=== PATIENT | female | born 1945 | race Caucasian/White ===

== ENCOUNTER → 2018-03-29 | Outpatient (CLI) | payer MEDICARE, BC ==
--- NOTE | 2018-03-29 13:25 | RADIOLOGY REPORT (SQ) ---
EXAM DESCRIPTION: MRI RT LOWER JOINT WITHOUT COMPLETED DATE/TIME: 03/29/2018 12:56 pm REASON FOR STUDY: M17.11 UNILATERAL PRIMARY OSTEOARTHRITIS, RIGHT KNEE M17.11 UNILATERAL PRIMARY OS TEOARTHRITIS, RIGHT KNEE COMPARISON: None. TECHNIQUE: Rightknee images acquired and stored on PACS. Multiplanar images include fat sensitive s equences as T1, water sensitive sequences as FST2 or STIR, cartilage sensitive sequences as FSPD, and gradient echo sequences. LIMITATIONS: None. FINDINGS: JOINT AND BURSAE: Moderate suprapatellar knee joint effusion. 5 x 2 cm Suarez's cyst in th e medial popliteal fossa BONE CORTEX AND MARROW: No marrow signal abnormalities worrisome for aggressive marrow replacement pr ocess/metastatic disease. A 3 x 2 cm area of edema and articular surface collapse is present along t he weight-bearing surface lateral femoral condyle coronal osteochondral defect. This is best shown o n sagittal image 7 and coronal image 15. ACL: Intact. No degeneration or ganglion cyst. PCL: Intact. MCL: Intact. No periligamentous edema or fluid. LCL: Intact. No periligamentous edema or fluid. MEDIAL MENISCUS: No tears. No abnormal signal. LATERAL MENISCUS: No tears. No abnormal signal. MEDIAL COMPARTMENT: Mild chondromalacia. No bone bruises or reactive marrow edema. No osteophytes. LATERAL COMPARTMENT: 3 x 2 cm area of edema and articular surface collapse is present along the weigh t-bearing surface lateral femoral condyle coronal osteochondral defect. This is best shown on sagitt al image 7 and coronal image 15 PATELLA: Mild diffuse patellar chondromalacia. No subchondral cysts. Medial and lateral retinacula in tact. EXTENSOR MECHANISM: Intact. Quadriceps and patella tendons normal. SOFT TISSUES: Adjacent muscles and subcutaneous tissues normal. Normal flow void in popliteal artery and vein. OTHER: No other significant finding. IMPRESSION: Large osteochondral defect weight-bearing surface lateral femoral condyle with 3 x 2 cm area of subcortical edema and articular surface collapse TECHNICAL DOCUMENTATION: JOB ID: [id number] [employer]- All Rights Reserved Reading location - IP/workstation name: [email or web address]
== END ==
LOC: RAD 11:47
PROVIDERS: ATTEND Orthopaedic Surgery
DX: M17.11 Unilateral primary osteoarthritis, right knee (principal)

== ENCOUNTER → 2018-04-20 | Outpatient (CLI) | payer MEDICARE, BC ==
--- NOTE | 2018-04-20 12:57 | RADIOLOGY REPORT (SQ) ---
EXAM DESCRIPTION: CHEST PA/LATERAL COMPLETED DATE/TIME: 04/20/2018 12:19 pm REASON FOR STUDY: PRE-OP COMPARISON: 10/29/2015. EXAM PARAMETERS: NUMBER OF VIEWS: two views TECHNIQUE: Digital Frontal and Lateral radiographic views of the chest acquired. RADIATION DOSE: NA LIMITATIONS: none FINDINGS: LUNGS AND PLEURA: No opacities, masses or pneumothorax. No pleural effusion. MEDIASTINUM AND HILAR STRUCTURES: No masses or contour abnormalities. HEART AND VASCULAR STRUCTURES: Heart normal size. No evidence for failure. BONES: No acute findings. Degenerative changes in the shoulders. HARDWARE: Stable stent in the descending thoracic aorta. OTHER: No other significant finding. IMPRESSION: NO ACUTE RADIOGRAPHIC FINDING IN THE CHEST. TECHNICAL DOCUMENTATION: JOB ID: [id number] [email or web address]- All Rights Reserved Reading location - IP/workstation name: [email or web address]
--- NOTE | 2018-04-20 13:06 | EKG REPORT ---
SEVERITY:- ABNORMAL ECG - SINUS RHYTHM LVH WITH SECONDARY REPOLARIZATION ABNORMALITY : Confirmed by: Edis Eduardo MD 20-Apr-2018 13:05:49
[2018-04-20 13:07] LABS: ABSOLUTE BASOPHILS # (AUTO) 0.1 10^3/uL (0.0-0.2); ABSOLUTE LYMPHOCYTES (AUTO) 1.5 10^3/uL (0.5-4.7); ABSOLUTE MONOCYTES (AUTO) 0.5 10^3/uL (0.1-1.4); ABSOLUTE NEUT (AUTO) 6.1 10^3/uL (1.7-8.2); BASOPHILS % (AUTO) 0.7 % (0-2); EOSINOPHILS % (AUTO) 0.4 % (0-6); HEMATOCRIT 42.3 % (36.0-47.0); LYMPHOCYTES % (AUTO) 18.3 % (13-45); MEAN CORPUSCULAR HEMOGLOBIN 27.2 pg (27.0-33.4); MEAN CORPUSCULAR VOLUME 82 fl (80-97); MONOCYTES % (AUTO) 6.3 % (3-13); PLATELET COUNT 241 10^3/uL (150-450); RED BLOOD COUNT 5.13 10^6/uL (3.72-5.28); SEGMENTED NEUTROPHILS % (AUTO) 74.3 % (42-78); TOTAL CELLS COUNTED % (AUTO) 100 %; WHITE BLOOD COUNT 8.3 10^3/uL (4.0-10.5)
[2018-04-20 13:28] LABS: ANION GAP 10 (5-19); BLOOD UREA NITROGEN 19 mg/dL (7-20); CALCIUM 9.6 mg/dL (8.4-10.2); CARBON DIOXIDE 28 mmol/L (22-30); CHLORIDE 102 mmol/L (98-107); GLUCOSE 104 mg/dL (75-110); POTASSIUM 4.8 mmol/L (3.6-5.0); SODIUM 139.9 mmol/L (137-145)
[2018-04-20 15:37] LABS: APPEARANCE,URINE CLOUDY; BILIRUBIN,URINE NEGATIVE (NEGATIVE); GLUCOSE, URINE NEGATIVE (NEGATIVE); KETONES,URINE NEGATIVE (NEGATIVE); LEUKOCYTE ESTERASE,URINE LARGE (NEGATIVE); NITRITE,URINE NEGATIVE (NEGATIVE); PROTEIN,URINE NEGATIVE (NEGATIVE); URINE SPECIFIC GRAVITY 1.015
[2018-04-20 15:38] LABS: COLOR,URINE YELLOW
== END ==
LOC: OD 11:07
PROVIDERS: ATTEND Orthopaedic Surgery
DX: I10 Essential (primary) hypertension (principal); Z01.810 Encounter for preprocedural cardiovascular examination; Z01.811 Encounter for preprocedural respiratory examination; Z01.812 Encounter for preprocedural laboratory examination
CPT/HCPCS: 36415; 71046; 80048; 81001; 85025; 93005; 93010

== ENCOUNTER 2018-05-18 05:24 | Inpatient (IN) | payer MEDICARE, BC ==
[~2018-05-18 05:24] MED LIST: BUPIVACAINE INJ/PF LIPOSOME/PF 266 MG/20 ML SDV IJ PRN; CEFAZOLIN 2 GM/D5W RTU 2 GM/50 ML RTUPB IV ONE; CEFAZOLIN SODIUM 2 GM in DEXTROSE 5%-WATER 100 ML IV PRN; IBUPROFEN 800 MG/NS 250 ML IV PRN; LACTATED RINGERS 1000 ML IV PRN; LANSOPRAZOLE 15 MG TAB.RAP.DR ONE; LANSOPRAZOLE 15 MG TAB.RAP.DR PO PRN; LIDOCAINE 0.5% INJ-PF (5 MG/ML) 50 ML SDV SUBCUT PRN; OXYCODONE HCL SR 10 MG TABLET PO PRN
[2018-05-18] MEDS ORDERED: OXYCODONE HCL SR 10 MG TABLET PO ONE (05:25)
[2018-05-18] MEDS ORDERED: BUPIVACAINE INJ/PF LIPOSOME/PF 266 MG/20 ML SDV ONE (06:31)
[2018-05-18] MEDS ORDERED: THROMBIN (BOVINE) TOPICAL 20000 UNIT VIAL ONE (06:31)
[2018-05-18] MEDS ORDERED: ALBUTEROL SULFATE 0.083% NEB 2.5 MG/3 ML AMPUL NEB ONE (07:21)
[2018-05-18] MEDS ORDERED: FENTANYL CITRATE INJ/PF 100 MCG/2 ML AMPUL ONE (07:23)
[2018-05-18] MEDS ORDERED: EPHEDRINE SULFATE INJ 50 MG/1 ML AMPULE ONE (07:24)
[2018-05-18] MEDS ORDERED: MIDAZOLAM 2 MG/2 ML INJ ONE (07:24)
[2018-05-18] MEDS ORDERED: PROPOFOL INJ 200 MG/20 ML VIAL IV ONE (07:24)
[2018-05-18] MEDS ORDERED: TRANEXAMIC ACID INJ/PF 1,000 MG/10 ML SDV IV ONE (07:24)
[2018-05-18] MEDS ORDERED: EPINEPHRINE INJ/PF 1 MG/1 ML AMPULE ONE (07:30)
[2018-05-18] MEDS ORDERED: DIPHENHYDRAMINE HCL 50 MG/ML VIAL IV PRN (08:23)
[2018-05-18] MEDS ORDERED: FENTANYL CITRATE INJ/PF 100 MCG/2 ML AMPUL IV PRN ×3 (08:23)
[2018-05-18] MEDS ORDERED: ONDANSETRON HCL INJ/PF 4 MG/2 ML SDV IV PRN ×2 (08:23→10:01)
[2018-05-18] MEDS ORDERED: ACETAMINOPHEN 325 MG TABLET PO PRN (10:01)
[2018-05-18] MEDS ORDERED: RINGERS SOLUTION,LACTATED 1,000 ML IV PRN (10:01)
[2018-05-18] MEDS ORDERED: MAG HYDROX/AL HYDROX/SIMETH SUSP 30 ML UDCUP PO PRN (10:01)
--- NOTE | 2018-05-18 10:01 | Operative Report ---
Operative Report DATE OF SURGERY: 05/18/18 PREOPERATIVE DIAGNOSIS: Right knee osteoarthritis POSTOPERATIVE DIAGNOSIS: Same OPERATION: Right knee arthroplasty SURGEON: KEYON MCKEE ANESTHESIA: Spinal TISSUE REMOVED OR ALTERED: Bone cuts COMPLICATIONS: none ESTIMATED BLOOD LOSS: 50 mL INTRAOPERATIVE FINDINGS: As above PROCEDURE: Patient received preoperative antibiotics and was taken to the operating room where she received spinal anesthetic. Patient was placed supine position and a thigh tourniquet was applied to left lower extremity. A bump was applied under buttocks and then the right lower extremity was prepped and draped in a normal sterile surgical fashion. Timeout was done identifying the right knee as the correct site. Esmarch was used to exsanguinate the extremity and the tourniquet was inflated at 300 mmHg. Of note we deflated tourniquet at the end of the proc edure at 90 minutes. Midline incision was done over the knee and dissection was taken down to the retinaculum and extensor mechanism and a paramedial arthrotomy was done exposing the knee. Patient had [id number] osteoarthritis as confirmed by x-ray with mild joint effusion. We then proceeded to do a medial release and excision of the medial meniscus and lateral meniscus. We moved remove the fat pad and then we flexed the knee at 90 and then remove the ACL and PCL as well. We subluxed the tibia anteriorly and placed the retractors and proceeded to do our tibial cut first. We drilled intramedullary and placed our intramedullary guide and pin the guide by measuring off the medial side which was the low side. We proceeded to do our tibial cut successfully. I was satisfied with the cut so I then proceeded to turn my attention to the femoral side and drilled intramedullary and then placed my intramedullary guide to do my distal femoral cut. We proceeded to us to pin it in place and then do our use a saw to do my distal femoral cut. Once I was satisfied with my distal femoral cut I removed the guide and then use a spacer to confirm proper balance. Initially I felt that my extension gap was balanced with 11 mm spacer. This was removed and I did proceed to size and do my 4-in-1 cutting block of the femur. I measured and used a size 2 and proceeded to do my 4 and 1 cuts. I then placed the steam box tender and then do the resected my box portion with a receptive saw and osteotome. I trialed sized to right femur l with a size 2 tibia and 11 spacer. I was satisfied with the flexion extension side proceeded to do my patellar cut using the guide. The patella measured 21 mm and we proceeded to resect 9 mm and left 12 mm behind after my cut was completed. I drilled the holes and placed the trial component 29 patella and placed in range of motion. I was satisfied with her range of motion and stability so I proceeded to remove all the implants and opened final components of the tibial tray, femur and patella button. I still use the trialed spacers at the end for repeat examination. Once I used copious irrigation and pulse lavage to clean out the bone I then proceeded to mix cement and appropriately cement the tibial component first and remove the excess cement. I then cemented the femoral component and remove the excess cement. I placed a trial spacer and cemented my patellar button. We waited until the cement had hardened and then needed to inject Exparel in the posterior capsule and periosteum. I then proceeded to put the final polyethylene spacer that measured 13 after noting some laxity so we went up to a 13. At this point I proceeded to do my Closure where I used #1 Vicryl for the arthrotomy and quadriceps tendon. I used thrombin for the knee and then I proceeded to close the subcutaneous fat with 0 Vicryl and 2-0 Vicryl for dermis and did a running 3-0 Monocryl subcuticular closure. Dermabond was applied followed by Steri- Strips. 4 x 4 dressing and OpSite dressing was applied the extremity was wrapped with soft roll and Ousmane bandage. Tourniquet was let down and drapes were removed. Patient was then transferred to PACU in stable condition.
[2018-05-18] MEDS ORDERED: OXYCODONE-ACETAMINOPHEN 5-325 MG TABLET PO PRN (10:19)
--- NOTE | 2018-05-18 12:21 | RADIOLOGY REPORT (SQ) ---
EXAM DESCRIPTION: KNEE RIGHT 2 VIEWS COMPLETED DATE/TIME: 05/18/2018 11:20 am REASON FOR STUDY: Post OP -Long Cassette in PACU M17.11 UNILATERAL PRIMARY OSTEOARTHRITIS, RIGHT KN EE COMPARISON: None. NUMBER OF VIEWS: Two view(s). TECHNIQUE: Digital radiographic images of the right knee post-procedure. LIMITATIONS: None. FINDINGS: BONES: No worrisome or unexpected findings post-procedure. DEVICE: Total knee arthroplasty SOFT TISSUES: No worrisome findings. Expected postoperative soft tissue changes. IMPRESSION: SATISFACTORY POSTOPERATIVE RIGHT KNEE. TECHNICAL DOCUMENTATION: JOB ID: [id number] [employer]- All Rights Reserved Reading location - IP/workstation name: [email or web address]
[2018-05-18] MEDS: OXYCODONE-ACETAMINOPHEN 5-325 MG TABLET PO PRN (15:55)
[2018-05-18] MEDS: MORPHINE SULFATE 10 MG/ML INJ IV PRN ×2 (17:53→21:01)
[2018-05-18] MEDS: ASPIRIN 81 MG TABLET, ENT COATED PO SCH (17:58)
[2018-05-18] MEDS: SENNOSIDES/DOCUSATE 8.6-50 MG 1 EACH TABLET PO SCH (17:58)
[2018-05-18] MEDS: TOLTERODINE TARTRATE 1 MG TABLET PO SCH (21:38)
[2018-05-18] MEDS ORDERED: (PENDING PHARMACY ID) (Solifenacin Succinate [Vesicare] 10 MG) PO SCH (22:00)
[2018-05-18] MEDS ORDERED: VANCOMYCIN HCL 1,000 MG in DEXTROSE 5%-WATER 250 ML IV ONE (22:01)
[2018-05-19] MEDS: OXYCODONE-ACETAMINOPHEN 5-325 MG TABLET PO PRN (02:49)
[2018-05-19] MEDS: MORPHINE SULFATE 10 MG/ML INJ IV PRN ×2 (05:38→14:27)
[2018-05-19] MEDS: LANSOPRAZOLE 15 MG TAB.RAP.DR PO SCH (05:39)
[2018-05-19 06:17] LABS: HEMATOCRIT 33.6 % (36.0-47.0); HEMOGLOBIN 11.1 g/dL (12.0-15.5); MEAN CORPUSCULAR HEMOGLOBIN 27.6 pg (27.0-33.4); MEAN CORPUSCULAR HGB CONC 33.2 g/dL (32.0-36.0); MEAN CORPUSCULAR VOLUME 83 fl (80-97); PLATELET COUNT 203 10^3/uL (150-450); RED BLOOD COUNT 4.05 10^6/uL (3.72-5.28); RED CELL DISTRIBUTION WIDTH 15.9 % (11.5-14.0); WHITE BLOOD COUNT 13.3 10^3/uL (4.0-10.5)
[2018-05-19 06:33] LABS: ANION GAP 8 (5-19); BLOOD UREA NITROGEN 10 mg/dL (7-20); CALCIUM 8.3 mg/dL (8.4-10.2); CARBON DIOXIDE 26 mmol/L (22-30); CHLORIDE 102 mmol/L (98-107); GLUCOSE 126 mg/dL (75-110); POTASSIUM 4.1 mmol/L (3.6-5.0); SODIUM 136.3 mmol/L (137-145)
[2018-05-19] MEDS: PRENATAL VITAMIN W DHA CAPSULE PO SCH (09:15)
[2018-05-19] MEDS: CHOLECALCIFEROL (D3) 1,000 UNIT TABLET PO SCH (09:15)
[2018-05-19] MEDS: TOLTERODINE TARTRATE 1 MG TABLET PO SCH ×2 (09:15→22:58)
[2018-05-19] MEDS: LOSARTAN POTASSIUM 50 MG TABLET PO SCH (09:15)
[2018-05-19] MEDS: SENNOSIDES/DOCUSATE 8.6-50 MG 1 EACH TABLET PO SCH ×2 (09:15→19:15)
[2018-05-19] MEDS ORDERED: (PENDING PHARMACY ID) (Cholecalciferol (Vitamin D3) [Vitamin D3] 2,000 UNIT) PO SCH (10:00)
[2018-05-19] MEDS ORDERED: (PENDING PHARMACY ID) (Losartan Potassium [Losartan Potassium] 100 MG) PO SCH (10:00)
--- NOTE | 2018-05-19 13:52 | PDOC PROGRESS REPORT ---
Subjective Progress Note for:: 05/19/18 Subjective:: Patient is having hallucinations on the Percocet. Requiring transition to tramadol and ibuprofen. Dressing was reinforced due to bleeding. No active bleeding today. Reason For Visit: RIGHT TOTAL KNEE Physical Exam Vital Signs: Temp Pulse Resp BP Pulse Ox 36.7 C 97 15 179/86 H 97 05/19/18 08:04 05/19/18 08:04 05/19/18 08:04 05/19/18 08:04 05/19/18 08:04 Intake & Output 05/18/18 05/19/18 05/20/18 06:59 06:59 06:59 Intake Total 0 2972 Output Total 600 Balance 0 2372 Weight 80.7 kg Adult Front & Back Image: 1 - Dressing reinforced with mild bleeding. Range of motion is -10 of extension to about 70-80 degrees of flexion. Soft calf negative Homans sign. Neurovascular intact distally with extension flexion of her ankle and toes with good sensation to light touch. Results Laboratory Results: 05/19/18 05:53 05/19/18 05:53 05/19/18 05/19/18 05:53 05:53 WBC 13.3 H RBC 4.05 Hgb 11.1 L Hct 33.6 L MCV 83 MCH 27.6 MCHC 33.2 RDW 15.9 H Plt Count 203 Sodium 136.3 L Potassium 4.1 Chloride 102 Carbon Dioxide 26 Anion Gap 8 BUN 10 Creatinine 0.60 Est GFR ( Amer) > 60 Est GFR (Non-Af Amer) > 60 Glucose 126 H Calcium 8.3 L Impressions: Knee X-Ray 05/18/18 10:04 IMPRESSION: SATISFACTORY POSTOPERATIVE RIGHT KNEE. Status: Image reviewed by me Assessment & Plan - Diagnosis (1) S/P total knee arthroplasty Qualifiers: Laterality: right Qualified Code(s): Z96.651 - Presence of right artificial knee joint Is this a current diagnosis for this admission?: Yes Plan: Patient is a 72-year-old female POD #1 from right total knee arthroplasty. Continue physical therapy Patient no longer on Percocet. Patient has been transitioned to tramadol and ibuprofen. Morphine for breakthrough pain. This was altered due to the fact that patient was having some hallucinations on the Percocet. Continue DVT prophylaxis Awaiting [facility] facility placement
[2018-05-19] MEDS: TRAMADOL HCL 50 MG TABLET PO PRN ×2 (15:49→22:58)
[2018-05-19] MEDS: ASPIRIN 81 MG TABLET, ENT COATED PO SCH (19:15)
[2018-05-19] MEDS: IBUPROFEN 800 MG in NORMAL SALINE 250 ML IV SCH (19:15)
[2018-05-19] MEDS: RIVAROXABAN 10 MG TABLET PO SCH (19:15)
[2018-05-19] MEDS: ATORVASTATIN CALCIUM 40 MG TABLET PO SCH (22:58)
[2018-05-20] MEDS: IBUPROFEN 800 MG in NORMAL SALINE 250 ML IV SCH ×3 (02:06→18:06)
[2018-05-20 05:04] LABS: HEMATOCRIT 32.1 % (36.0-47.0); HEMOGLOBIN 10.5 g/dL (12.0-15.5); MEAN CORPUSCULAR HEMOGLOBIN 27.2 pg (27.0-33.4); MEAN CORPUSCULAR HGB CONC 32.7 g/dL (32.0-36.0); MEAN CORPUSCULAR VOLUME 83 fl (80-97); PLATELET COUNT 189 10^3/uL (150-450); RED BLOOD COUNT 3.86 10^6/uL (3.72-5.28); RED CELL DISTRIBUTION WIDTH 15.8 % (11.5-14.0)
[2018-05-20] MEDS: TRAMADOL HCL 50 MG TABLET PO PRN ×4 (05:57→22:41)
[2018-05-20] MEDS: LANSOPRAZOLE 15 MG TAB.RAP.DR PO SCH (05:57)
--- NOTE | 2018-05-20 07:08 | PDOC PROGRESS REPORT ---
Subjective Progress Note for:: 05/20/18 Reason For Visit: RIGHT TOTAL KNEE 72-year-old white female now postop day 2 status post right total knee arthroplasty. Postoperative issues with pain control. Limited progress with physical therapy. Physical Exam Vital Signs: Temp Pulse Resp BP Pulse Ox 36.7 C 108 H 18 145/79 H 91 L 05/20/18 00:00 05/20/18 00:00 05/20/18 00:00 05/20/18 00:00 05/20/18 00:00 Intake & Output 05/19/18 05/20/18 05/21/18 06:59 06:59 06:59 Intake Total 2972 1000 Output Total 600 500 Balance 2372 500 Weight 80.7 kg 81.8 kg General appearance: PRESENT: mild distress, obese, severe distress, well- nourished Head exam: PRESENT: normocephalic Respiratory exam: PRESENT: unlabored Cardiovascular exam: PRESENT: RRR Pulses: PRESENT: +1 pedal pulses bilateral Vascular exam: PRESENT: normal capillary refill GI/Abdominal exam: PRESENT: soft Rectal exam: PRESENT: deferred Extremities exam: PRESENT: other - Right lower extremity dressing which is blood soaked is removed. Underlying OpSite is removed. Wound is well approximated with kat. There is no active drainage of this surrounding ecchymosis. Acticoat dressing applied and the cryotherapy cuff is applied on top of the Acticoat. Patient has considerable discomfort associate with heaving passive elevation of the legs for the dressing change. Neurological exam: PRESENT: alert, awake, oriented to person, oriented to place, oriented to time, oriented to situation. ABSENT: motor sensory deficit Psychiatric exam: PRESENT: agitated, anxious Skin exam: PRESENT: dry, intact, warm. ABSENT: cyanosis, rash Results Laboratory Results: 05/20/18 04:30 05/19/18 05:53 05/20/18 04:30 WBC 14.0 H RBC 3.86 Hgb 10.5 L Hct 32.1 L MCV 83 MCH 27.2 MCHC 32.7 RDW 15.8 H Plt Count 189 Impressions: Knee X-Ray 05/18/18 10:04 IMPRESSION: SATISFACTORY POSTOPERATIVE RIGHT KNEE. Status: Imported from PACS Assessment & Plan - Diagnosis (1) S/P total knee arthroplasty Qualifiers: Laterality: right Qualified Code(s): Z96.651 - Presence of right artificial knee joint Is this a current diagnosis for this admission?: Yes Plan: Continued physical therapy. Anticipate the need for [facility] facility placement - Time Time Spent with patient: 15-24 minutes Anticipated discharge: SNF Within: when bed available
[2018-05-20] MEDS: CHOLECALCIFEROL (D3) 1,000 UNIT TABLET PO SCH (11:16)
[2018-05-20] MEDS: SENNOSIDES/DOCUSATE 8.6-50 MG 1 EACH TABLET PO SCH ×2 (11:17→18:06)
[2018-05-20] MEDS: LOSARTAN POTASSIUM 50 MG TABLET PO SCH (11:17)
[2018-05-20] MEDS: PRENATAL VITAMIN W DHA CAPSULE PO SCH (11:17)
[2018-05-20] MEDS: TOLTERODINE TARTRATE 1 MG TABLET PO SCH ×2 (11:17→22:41)
[2018-05-20] MEDS: ASPIRIN 81 MG TABLET, ENT COATED PO SCH (18:07)
[2018-05-20] MEDS: RIVAROXABAN 10 MG TABLET PO SCH (18:07)
[2018-05-20] MEDS: ATORVASTATIN CALCIUM 40 MG TABLET PO SCH (22:41)
[2018-05-21] MEDS: IBUPROFEN 800 MG in NORMAL SALINE 250 ML IV SCH ×3 (01:35→17:40)
[2018-05-21] MEDS: LANSOPRAZOLE 15 MG TAB.RAP.DR PO SCH (05:31)
[2018-05-21] MEDS: TRAMADOL HCL 50 MG TABLET PO PRN ×2 (05:31→14:28)
[2018-05-21 06:47] LABS: HEMATOCRIT 30.3 % (36.0-47.0); HEMOGLOBIN 9.8 g/dL (12.0-15.5); MEAN CORPUSCULAR HEMOGLOBIN 27.6 pg (27.0-33.4); MEAN CORPUSCULAR HGB CONC 32.5 g/dL (32.0-36.0); MEAN CORPUSCULAR VOLUME 85 fl (80-97); PLATELET COUNT 179 10^3/uL (150-450); RED BLOOD COUNT 3.57 10^6/uL (3.72-5.28); RED CELL DISTRIBUTION WIDTH 16.1 % (11.5-14.0); WHITE BLOOD COUNT 8.7 10^3/uL (4.0-10.5)
--- NOTE | 2018-05-21 08:31 | PDOC PROGRESS REPORT ---
Subjective Progress Note for:: 05/21/18 Reason For Visit: RIGHT TOTAL KNEE 72-year-old white female now postop day 3 status post right knee arthroplasty. Patient with continued complaints of pain associate with motion of the knee. Physical Exam Vital Signs: Temp Pulse Resp BP Pulse Ox 36.6 C 101 H 19 121/55 L 94 05/21/18 00:01 05/21/18 00:01 05/21/18 00:01 05/21/18 00:01 05/21/18 00:01 Intake & Output 05/20/18 05/21/18 05/22/18 06:59 06:59 06:59 Intake Total 1000 2300 Output Total 500 560 Balance 500 1740 Weight 81.8 kg 83.6 kg General appearance: PRESENT: mild distress, obese Head exam: PRESENT: normocephalic Respiratory exam: PRESENT: unlabored Cardiovascular exam: PRESENT: RRR Pulses: PRESENT: +1 pedal pulses bilateral Vascular exam: PRESENT: normal capillary refill GI/Abdominal exam: PRESENT: soft Rectal exam: PRESENT: deferred Extremities exam: PRESENT: other - Right lower extremity with continued induration and ecchymosis. Acticoat dressing placed yesterday remains clean dry and intact. Neurological exam: PRESENT: alert, awake, oriented to person, oriented to place, oriented to time, oriented to situation. ABSENT: motor sensory deficit Results Laboratory Results: 05/21/18 06:07 05/19/18 05:53 05/21/18 06:07 WBC 8.7 RBC 3.57 L Hgb 9.8 L Hct 30.3 L MCV 85 MCH 27.6 MCHC 32.5 RDW 16.1 H Plt Count 179 Impressions: Knee X-Ray 05/18/18 10:04 IMPRESSION: SATISFACTORY POSTOPERATIVE RIGHT KNEE. Status: Imported from PACS Assessment & Plan - Diagnosis (1) S/P total knee arthroplasty Qualifiers: Laterality: right Qualified Code(s): Z96.651 - Presence of right artificial knee joint Is this a current diagnosis for this admission?: Yes Plan: 72-year-old white female status post right knee arthroplasty with relatively slow course in terms of physical therapy and ongoing complaints of pain. Discussed her pain control with her son yesterday who feels the tramadol is the appropriate medication otherwise the patient has significant mental status side effects. - Time Time Spent with patient: 15-24 minutes Anticipated discharge: Other Within: Other
[2018-05-21] MEDS: CHOLECALCIFEROL (D3) 1,000 UNIT TABLET PO SCH (09:33)
[2018-05-21] MEDS: SENNOSIDES/DOCUSATE 8.6-50 MG 1 EACH TABLET PO SCH ×2 (09:33→17:40)
[2018-05-21] MEDS: LOSARTAN POTASSIUM 50 MG TABLET PO SCH (09:33)
[2018-05-21] MEDS: PRENATAL VITAMIN W DHA CAPSULE PO SCH (09:34)
[2018-05-21] MEDS: TOLTERODINE TARTRATE 1 MG TABLET PO SCH ×2 (09:34→22:22)
[2018-05-21] MEDS: RIVAROXABAN 10 MG TABLET PO SCH (17:40)
[2018-05-21] MEDS: ASPIRIN 81 MG TABLET, ENT COATED PO SCH (17:40)
[2018-05-21] MEDS: ATORVASTATIN CALCIUM 40 MG TABLET PO SCH (22:22)
[2018-05-22] MEDS: IBUPROFEN 800 MG in NORMAL SALINE 250 ML IV SCH ×3 (02:45→17:04)
[2018-05-22] MEDS: LANSOPRAZOLE 15 MG TAB.RAP.DR PO SCH (05:29)
[2018-05-22] MEDS: CHOLECALCIFEROL (D3) 1,000 UNIT TABLET PO SCH (09:18)
[2018-05-22] MEDS: LOSARTAN POTASSIUM 50 MG TABLET PO SCH (09:18)
[2018-05-22] MEDS: SENNOSIDES/DOCUSATE 8.6-50 MG 1 EACH TABLET PO SCH ×2 (09:19→17:03)
[2018-05-22] MEDS: PRENATAL VITAMIN W DHA CAPSULE PO SCH (09:19)
[2018-05-22] MEDS: TOLTERODINE TARTRATE 1 MG TABLET PO SCH ×2 (09:19→21:39)
--- NOTE | 2018-05-22 11:31 | PDOC PROGRESS REPORT ---
Subjective Progress Note for:: 05/22/18 Subjective:: Patient has no issues overnight. Complains of knee pain but is satisfied with tramadol because she does not want to be confused on Percocet. The family also would like that as well. Having discussion with him they are going to give her 24 7 care and would prefer to have her go home and set up home health instead of rehab. Reason For Visit: RIGHT TOTAL KNEE Physical Exam Vital Signs: Temp Pulse Resp BP Pulse Ox 36.6 C 70 20 155/92 H 94 05/22/18 08:14 05/22/18 08:14 05/22/18 08:14 05/22/18 08:14 05/22/18 08:14 Intake & Output 05/21/18 05/22/18 05/23/18 06:59 06:59 06:59 Intake Total 2300 1673 Output Total 560 500 Balance 1740 1173 Weight 83.6 kg 84.3 kg General appearance: PRESENT: no acute distress Neurological exam: PRESENT: alert, awake, oriented to person, oriented to place, oriented to time, oriented to situation. ABSENT: motor sensory deficit Skin exam: PRESENT: other - Ecchymosis of the extremity. ABSENT: erythema, rash Adult Front & Back Image: 1 - Dressing is dry clean and intact. Some mild ecchymosis around the knee with negative Homans sign and soft calf. Neurovascular intact distally Results Laboratory Results: 05/21/18 06:07 05/19/18 05:53 Impressions: Knee X-Ray 05/18/18 10:04 IMPRESSION: SATISFACTORY POSTOPERATIVE RIGHT KNEE. Assessment & Plan - Diagnosis (1) S/P total knee arthroplasty Qualifiers: Laterality: right Qualified Code(s): Z96.651 - Presence of right artificial knee joint Is this a current diagnosis for this admission?: Yes - Plan Summary Plan Summary: Patient is postop day 4 from right total knee arthroplasty. After discussing with the family we are converting from rehab placement to setting up home health. Patient will go to 1 of her children's house which is a 1 floor with no stairs and will be able to be home and help and assist her as needed. We will try to set this up and discharge her in the morning. She will be discharged on tramadol and ibuprofen for her pain and also Xarelto for DVT prophylaxis. Okay to shower starting tomorrow Continue therapy
[2018-05-22 12:15] LABS: APPEARANCE,URINE CLEAR; BILIRUBIN,URINE NEGATIVE (NEGATIVE); COLOR,URINE YELLOW; GLUCOSE, URINE NEGATIVE (NEGATIVE); KETONES,URINE NEGATIVE (NEGATIVE); LEUKOCYTE ESTERASE,URINE NEGATIVE (NEGATIVE); NITRITE,URINE NEGATIVE (NEGATIVE); PROTEIN,URINE NEGATIVE (NEGATIVE); UROBILINOGEN,URINE NEGATIVE mg/dL (<2.0)
[2018-05-22] MEDS: RIVAROXABAN 10 MG TABLET PO SCH (17:03)
[2018-05-22] MEDS: ASPIRIN 81 MG TABLET, ENT COATED PO SCH (17:03)
[2018-05-22] MEDS: ATORVASTATIN CALCIUM 40 MG TABLET PO SCH (21:39)
[2018-05-23] MEDS: IBUPROFEN 800 MG in NORMAL SALINE 250 ML IV SCH (01:47)
[2018-05-23] MEDS: LANSOPRAZOLE 15 MG TAB.RAP.DR PO SCH (06:22)
[2018-05-23 07:36] VITALS: BP 155/92
--- NOTE | 2018-06-09 14:57 | PDOC DISCHARGE SUMMARY ---
General - Admit/Disc Date/PCP Admission Date/Primary Care Provider: 05/18/18 05:24 JENNA WORKMAN Discharge Date: 05/22/18 - Discharge Diagnosis (1) S/P total knee arthroplasty Is this a current diagnosis for this admission?: Yes - Additional Information Resuscitation Status: Full Code Discharge Diet: As Tolerated Discharge Activity: Keep Legs Elevated, Slowly Increase Activity, Walk Frequently Home Medications: Aspirin [Aspirin EC] 1 tab PO QPM 04/23/14 Omeprazole 20 mg PO QAM 04/23/14 Colchicine [Colcrys 0.6 mg Tablet] 0.6 mg PO DAILYP PRN 05/04/18 Losartan Potassium 100 mg PO DAILY 05/04/18 Pravastatin Sodium [Pravachol] 80 mg PO DAILY 05/04/18 Solifenacin Succinate [Vesicare] 10 mg PO QHS 05/04/18 Cholecalciferol (Vitamin D3) [Vitamin D3] 2,000 unit PO DAILY 05/18/18 History of Present Illness History of Present Illness: MAGNO BANUELOS is a 72 year old female who was admitted on 05/18/2018 to undergo right total knee arthroplasty. 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 Hospital Course Hospital Course: On 05/18/2018 patient underwent a right total knee arthroplasty without complications. On postop day 1 patient was having some mental status changes on the Percocet so she was given tramadol instead. Patient stayed over the weekend with plans to send her to rehab with no medical issues or complications but patient on postop day 4 had her pain under control and we were able to change the plan from my rehab to discharge at home with home health. Physical Exam Vital Signs: Temp Pulse Resp BP Pulse Ox 36.9 C 99 17 155/92 H 93 05/23/18 07:32 05/23/18 07:32 05/23/18 07:32 05/23/18 07:32 05/23/18 07:32 General appearance: PRESENT: no acute distress Head exam: PRESENT: atraumatic, normocephalic Adult Front & Back Image: 1 - Dressing was dry clean and intact. Range of motion was -10 degrees of extension to about 90 degrees of flexion. Negative Homans sign with a soft calf. Neurovascular intact distally Results Laboratory Results: 05/21/18 06:07 05/19/18 05:53 Impressions: Knee X-Ray 05/18/18 10:04 IMPRESSION: SATISFACTORY POSTOPERATIVE RIGHT KNEE. Status: Image reviewed by me Qualifiers - * PATIENT BEING DISCHARGED WITH ANY OF THE FOLLOWING DIAGNOSIS: No VTE patient discharged on overlapping Therapy?: Yes Plan Discharge Plan: 72-year-old female status post right total knee arthroplasty. Discharged on 05/22/2018. She will go home with home health. Will weight-bear as tolerated with the assisted devices. Talk to the change dressing and okay to shower. We will follow-up in 1-2 weeks in office for wound check and staple removal.
== END 2018-05-23 09:32 | disposition home or self-care (01) | DRG 470 ==
LOC: INOR 05:24 → 4S 11:53
PROVIDERS: ADMIT Orthopaedic Surgery; ATTEND Orthopaedic Surgery
PROC: 0SRC0J9 Replacement of Right Knee Joint with Synthetic Substitute, Cemented, Open Approach (ICD-10-PCS; principal; 2018-05-18 07:30)
DX: M87.851 Other osteonecrosis, right femur (principal); R44.3 Hallucinations, unspecified; M17.11 Unilateral primary osteoarthritis, right knee; E78.00 Pure hypercholesterolemia, unspecified; K21.9 Gastro-esophageal reflux disease without esophagitis; I10 Essential (primary) hypertension; Z79.82 Long term (current) use of aspirin; Z79.899 Other long term (current) drug therapy; F17.210 Nicotine dependence, cigarettes, uncomplicated; Z96.641 Presence of right artificial hip joint; N32.81 Overactive bladder; T40.2X5A Adverse effect of other opioids, initial encounter
CPT/HCPCS: 01402; 36415; 80048; 81001; 85027; 88304; 88311; 94799; C1713; C1776; C9290; J0171; J0690; J1741; J2250; J2270; J2704; J3010; J3370; J3490; J7050; J7060; J7120

== ENCOUNTER 2019-07-06 10:26 | Emergency (ER) | payer MEDICARE, BC ==
--- NOTE | 2019-07-06 11:55 | ER Document Report ---
ED Neck/Back Problem - General Chief Complaint: Back Pain Stated Complaint: LUMBAR PAIN Time Seen by Provider: 07/06/19 11:04 Primary Care Provider: JENNA WORKMAN MD [Primary Care Provider] - Follow up as needed Notes: 73-year-old woman presents emergency department with a complaint of pain in her lower back with sharp shooting pains which come periodically. She been having pain earlier this week and has progressed to severe pain over the past 3 days. Son notes that she is unable to get out of bed and has inability to eat due to her severe symptoms. TRAVEL OUTSIDE OF THE [place] IN LAST 30 DAYS: No - Related Data Allergies/Adverse Reactions: acetaminophen [From Percocet] Allergy (Verified 07/06/19 10:42) oxycodone [From Percocet] Allergy (Verified 07/06/19 10:42) latex Adverse Reaction (Verified 05/04/18 11:15) Blisters Past Medical History - Social History Smoking Status: Current Every Day Smoker Frequency of alcohol use: None Drug Abuse: None Family History: Reviewed & Not Pertinent Patient has suicidal ideation: No Patient has homicidal ideation: No - Past Medical History Cardiac Medical History: Reports: Hx Hypercholesterolemia - since 2008 takes meds, Hx Hypertension - since 2008 takes meds Denies: Hx Atrial Fibrillation, Hx Congestive Heart Failure, Hx Coronary Artery Disease, Hx Heart Attack, Hx Peripheral Vascular Disease, Hx Pulmonary Embolism, Hx Heart Murmur Pulmonary Medical History: Reports: Hx Bronchitis - 20 years ago, Hx Sleep Apnea - CPAP Denies: Hx Asthma, Hx COPD, Hx Pneumonia, Hx Respiratory Failure, Hx Tuberculosis Endocrine Medical History: Denies: Hx Hyperthyroidism, Hx Hypothyroidism Renal/ Medical History: Denies: Hx End Stage Renal Disease, Hx Kidney Stones, Hx Peritoneal Dialysis Malignancy Medical History: Denies: Hx Lung Cancer GI Medical History: Reports: Hx Gastroesophageal Reflux Disease - 2009?, Hx Hiatal Hernia. Denies: Hx Crohn's Disease, Hx Irritable Bowel, Hx Liver Failure, Hx Pancreatitis, Hx Ulcer Musculoskeletal Medical History: Reports Hx Arthritis, Denies Hx Fibromyalgia, Denies Hx Muscular Dystrophy Psychiatric Medical History: Denies: Hx Bipolar Disorder, Hx Post Traumatic Stress Disorder Traumatic Medical History: Reports: Hx Fractures - left femur fx Past Surgical History: Denies: Hx Appendectomy, Hx Bowel Surgery, Hx Section, Hx Cholecystectomy, Hx Colostomy, Hx Coronary Artery Bypass Graft, Hx Gastric Bypass Surgery, Hx Herniorrhaphy, Hx Hysterectomy, Hx Mastectomy, Hx Pacemaker, Hx Tonsillectomy, Hx Tubal Ligation - Immunizations Hx Pneumococcal Vaccination: 04/30/14 Review of Systems - Review of Systems Notes: Constitutional: Negative for fever. HENT: Negative for sore throat. Eyes: Negative for visual changes. Cardiovascular: Negative for chest pain. Respiratory: Negative for shortness of breath. Gastrointestinal: Negative for abdominal pain, vomiting or diarrhea. Genitourinary: Negative for dysuria. Musculoskeletal: + Back pain. Skin: Negative for rash. Neurological: Negative for headaches, weakness or numbness. 10 point ROS negative except as marked above and in HPI. Physical Exam - Notes Notes: PHYSICAL EXAMINATION: Physical Exam: General: Frail 73-year-old woman in mild distress secondary to back pain. HEENT: NC/AT, pupils equal round and reactive to light, MM moist,nares clear, oropharynx clear, airway patent Neck: supple, no adenopathy, no masses. Good range of motion Lungs: clear, no wheezing, no rales no rhonchi CVS: Regular rate and rhythm no murmur gallop or rub Abdomen: Soft, active, nontender, no masses, no hepatosplenomegaly Ext: No edema, clubbing or cyanosis. Back: Tenderness in the paraspinous muscle group bilaterally lumbar region. Neuro: Alert and responsive, moving all 4 extremities on command, cranial nerves intact, no focal findings Skin: Intact no open lesions, no rash PSYCH: Normal mood, normal affect. Course - Re-evaluation Re-evalutation: 07/06/19 14:52 Patient was given IV Toradol and IV Robaxin for pain and spasms. X-ray reveals no acute bony abnormalities. She has multiple areas of chronic disease with a grade 2 anterior listhesis as well as bilateral pars defects with multilevel DDD. I explained this to the patient and her son that she will have some associated back pain. We will discharge her on an anti-inflammatory pain medication along with a muscle relaxant and a short course of steroids. They will follow-up with her primary care doctor on Tuesday or return to the emergency department if needed. - Diagnostic Test Radiology reviewed: Image reviewed, Reports reviewed Discharge - Discharge Clinical Impression: Degenerative disc disease, lumbar, Spasm of back muscles, Facet arthritis, degenerative, L5-S1 level, lumbosacral spine Disposition: HOME, SELF-CARE Instructions: Low Back Pain ([facility]) Additional Instructions: You were treated for low back pain and muscle spasms in the emergency department today. Please take the medications as prescribed baclofen, Naprosyn, prednisone. Please follow-up with your primary care doctor as needed or return to the emergency department if you having worsening symptoms or other concerns. HOME CARE INSTRUCTIONS & INFORMATION: Thank you for choosing us for your medical needs. We hope you're satisfied with the care you received. After you leave, you must properly care for your problem and, at the same time, observe its progress. Any condition can change. Some illnesses can change rapidly over hours or days. If your condition worsens, return to the Emergency Department or see your physician promptly. ABOUT YOUR X-RAYS AND EKG'S: If you had an EKG or X-rays taken, they have been read by the Emergency Physician. The X-rays and EKG's will also be read by a Radiologist or Hospital Pharmacy Technician within 24 hours. If discrepancies are noted, you will be notified by telephone. Please be certain the ED has a correct telephone number & address where you can be reached. Also, realize that some fractures or abnormalities do not show up on initial X-rays. If your symptoms continue, see your physician. ABOUT YOUR LABORATORY TEST: If you had laboratory tests, the results have been reviewed by the Emergency Physician. Some test results (for example cultures) may not be available for several days. You will be contacted if any test result shows you need additional treatment. Please be certain the ED has a correct telephone number and address where you can be reached. ABOUT YOUR MEDICATIONS: You will receive instructions on how to take your medicine on the prescription label you receive. Additional information may be provided by the Pharmacy. If you have questions afterwards, call the ED for clarification or further instructions. Some prescribed medications may cause drowsiness. Do not perform tasks such as driving a car or operating machinery without consulting your Pharmacist. If you feel you need a refill of pain medication, your condition will need re-evaluation. Please do not call for a refill of any medication. ABOUT YOUR SIGNATURE: Signature of this document acknowledges to followin. Understanding that you received emergency treatment and that you may be released before al medical problems are known or treated. Please be certain the ED has a correct phone number & address where you can be reached. 2. Acknowledgement that you will arrange for follow-up care as recommended. 3. Authorization for the Emergency Physician to provide information to your follow-up Physician in order to maximize your care. AT ANY TIME, IF YOUR SYMPTOMS CHANGE SIGNIFICANTLY OR WORSEN OR YOU DEVELOP NEW SYMPTOMS, RETURN TO THE EMERGENCY DEPARTMENT IMMEDIATELY FOR RE-EVALUATION. OUR GOAL IS TO PROVIDE EXCELLENT MEDICAL CARE! WE HOPE THAT WE HAVE MET YOUR EXPECTATIONS DURING YOUR EMERGENCY DEPARTMENT VISIT AND THAT YOU FEEL YOU HAVE RECEIVED EXCELLENT CARE! Prescriptions: Baclofen [Baclofen 10 mg Tablet] 10 mg PO TID #30 tab Prednisone [Deltasone 20 mg Tablet] 1 tab PO BID 3 Days #6 tablet Naproxen [Naprosyn] 500 mg PO BID #20 tablet Naproxen 500 mg PO BID PRN #14 tablet PRN Reason: Referrals: JENNA WORKMAN MD [Primary Care Provider] - Follow up as needed
[2019-07-06] MEDS ORDERED: KETOROLAC TROMETHAMINE INJ/PF 30 MG/1 ML SDV IV ONE (12:02)
[2019-07-06] MEDS ORDERED: METHOCARBAMOL INJ/PF 1000 MG/10 ML SDV IV ONE (12:02)
--- NOTE | 2019-07-06 14:24 | RADIOLOGY REPORT (SQ) ---
EXAM DESCRIPTION: L SPINE WHOLE COMPLETED DATE/TIME: 07/06/2019 2:09 pm REASON FOR STUDY: Low back pain COMPARISON: None. NUMBER OF VIEWS: Five views including obliques. TECHNIQUE: AP, lateral, oblique, and sacral radiographic images acquired of the lumbar spine. LIMITATIONS: None. FINDINGS: MINERALIZATION: Decreased. SEGMENTATION: 5 [id number] lumbar vertebral bodies. ALIGNMENT: Straightening of the normal lumbar lordosis. Grade 2 anterolisthesis of L5 on S1. VERTEBRAE: No definite acute fracture. DISCS: There is multilevel degenerative disc disease with disc height loss throughout the lumbar spin e greatest at L3-4 and L5-S1. POSTERIOR ELEMENTS: Bulky multilevel facet arthropathy. Questionable L5 pars defect although evaluat ion limited secondary to extensive facet arthropathy and decreased mineralization. HARDWARE: None in the spine. Partially visualized right hip hardware. PARASPINAL SOFT TISSUES: Vascular calcifications. PELVIS: Intact as visualized. No fractures or worrisome bone lesions. SI joints intact. OTHER: No other significant finding. IMPRESSION: 1. No definite acute bony abnormality. 2. Grade 2 anterolisthesis of L5 on S1 with likely bilateral L5 pars defects. 3. Multilevel degenerative disc disease with disc height loss throughout the lumbar spine, greatest at L3-4 and L5-S1. Bulky multilevel facet arthropathy. TECHNICAL DOCUMENTATION: JOB ID: [id number] 2010 [employer] All Rights Reserved Reading location - IP/workstation name: [email or web address]
[2019-07-06 15:51] VITALS: BP 188/84
== END 2019-07-06 15:50 | disposition home or self-care (01) ==
LOC: ER 10:26
DX: M51.36 Other intervertebral disc degeneration, lumbar region (principal); M51.37 Other intervertebral disc degeneration, lumbosacral region; M62.830 Muscle spasm of back; M13.88 Other specified arthritis, other site; M54.9 Dorsalgia, unspecified; M54.5 Low back pain; F17.200 Nicotine dependence, unspecified, uncomplicated; Z88.8 Allergy status to other drugs, medicaments and biological substances; I10 Essential (primary) hypertension; Z79.899 Other long term (current) drug therapy
CPT/HCPCS: 99283; 96374; 96375; 72110; J2800; J1885